=== PATIENT | female | born 2000 | race Two or more races ===

== ENCOUNTER 2023-04-27 14:29 | Outpatient (REF) | payer MEDICAID, SELFPAY ==
--- NOTE | ~2023-04-27 | US_ITS ---
EXAMINATION: US PELVIS COMPLETE CLINICAL INFORMATION: Dysmenorrhea COMPARISON: Dysmenorrhea TECHNIQUE: Transabdominal and transvaginal imaging was performed. FINDINGS: The uterus is of normal size and echogenicity measuring 2.7 x 2.1 x 1.7 cm. A regular homogeneous endometrium is identified measuring 1.1 cm. Both ovaries are of normal size and echogenicity. The right measures 2.7 x 2.1 x 1.7 cm for a volume of 5.1 mL. The left measures 3.5 x 1.6 x 2.1 cm for a volume of 6.0 mL. There is trace physiologic volume pelvic free fluid. Prominent gonadal vessels which could be seen in the setting of pelvic venous congestion syndrome if clinical history is appropriate. US/US pelvic and transvaginal IMPRESSION: Prominent gonadal vessels which could be seen in the setting of pelvic venous congestion syndrome if clinical history is appropriate. Otherwise unremarkable pelvic ultrasound.
== END 2023-04-27 14:30 | disposition home or self-care (01) ==
LOC: HO.HMGCX 14:29
PROVIDERS: Visit Provider Advanced Practice Midwife
DX: N94.6 Dysmenorrhea, unspecified (principal)
CPT/HCPCS: 76830; 76856

== ENCOUNTER 2023-06-01 12:12 | Outpatient (REF) | payer MEDICAID, SELFPAY ==
[2023-06-01 14:28] LABS: Appearance Urine Turbid; Color Urine Yellow; Glucose Urine UA Negative (Negative); Leukocyte Esterase Urine Large (3+) (Negative); Nitrite Urine Negative (Negative); PH 5.5 (5.0-9.0); Specific Gravity - Urine 1.025 (1.005-1.025); UMIC TRIGGER UA YES; Urine Blood Negative (Negative); Urine Ketones Negative (Negative); Urine Protein Trace mg/dL (Neg-Trace)
[2023-06-01 14:39] LABS: Bacteria Urine 3+ (None Seen); RBC Urine >20 /HPF (0-2); Squamous Epithelial Cell Urine >20 /HPF (0-2); WBC Urine >50 /HPF (0-5)
[2023-06-01 15:03] LABS: HCG Quantitative < 2 mIU/mL
== END 2023-06-01 12:13 | disposition home or self-care (01) ==
LOC: HO.CHCLDS 12:12
PROVIDERS: Visit Provider Student in an Organized Health Care Education/Training Program
DX: Z72.51 High risk heterosexual behavior (principal)
CPT/HCPCS: 36415; 81001; 84702

== ENCOUNTER 2023-07-12 12:32 | Outpatient (REF) | payer MEDICAID, SELFPAY ==
[2023-07-12 14:27] LABS: Estimated Average Glucose 103 mg/dL; Hemoglobin A1c % 5.2 % (<6.0)
[2023-07-12 16:25] LABS: CT PCR DETECTED (Not Detect.); NG PCR NOT DETECTED (Not Detect.)
[2023-07-13 03:53] LABS: ~HepC Num1 0.09 S/CO (0.00-0.79); ~Hepatitis C Antibody Nonreactive (Nonreactive)
[2023-07-13 03:55] LABS: HIV AB/AG Nonreactive (Nonreactive); HIV Num 1 0.05 S/CO (0.00-0.99)
[2023-07-13 04:09] LABS: Syphilis Screen Nonreactive (Nonreactive)
[2023-07-13 10:46] LABS: BV Int Neg Control Negative (Negative); BV Int Pos Control Positive (Positive)
[2023-07-16 01:29] LABS: C. Trachomatis RNA TMA, Throat NOT DETECTED; N. gonorrhoeae RNA TMA, Throat NOT DETECTED
== END 2023-07-12 12:33 | disposition home or self-care (01) ==
LOC: HO.CHCLDS 12:32
PROVIDERS: Visit Provider Advanced Practice Midwife
DX: Z11.3 Encounter for screening for infections with a predominantly sexual mode of transmission (principal); B37.31 Acute candidiasis of vulva and vagina
CPT/HCPCS: 0353U; 36415; 83036; 86780; 86803; 87389; 87480; 87491; 87510; 87591; 87660

== ENCOUNTER 2024-08-11 15:37 | Outpatient (REF) | payer MEDICAID, SELFPAY ==
[2024-08-12 06:12] LABS: CT PCR NOT DETECTED (Not Detect.); NG PCR NOT DETECTED (Not Detect.)
[2024-08-12 09:39] LABS: Bacterial Vaginosis PCR POSITIVE (Negative); Candida Group PCR NOT DETECTED (Not Detect); Candida glab krusei PCR NOT DETECTED (Not Detect); Trichomonas vaginalis PCR NOT DETECTED (Not Detect)
== END 2024-08-11 15:38 | disposition home or self-care (01) ==
LOC: HO.HHCLNP 15:37
PROVIDERS: Visit Provider General Practice
DX: N89.8 Other specified noninflammatory disorders of vagina (principal)
CPT/HCPCS: 0352U; 87491; 87591

== ENCOUNTER 2024-10-03 17:44 | Outpatient (REF) | payer MEDICAID, SELFPAY ==
[2024-10-04 03:53] LABS: CT PCR NOT DETECTED (Not Detect.); NG PCR NOT DETECTED (Not Detect.)
[2024-10-04 12:04] LABS: Bacterial Vaginosis PCR NEGATIVE (Negative); Candida Group PCR NOT DETECTED (Not Detect); Candida glab krusei PCR NOT DETECTED (Not Detect); Trichomonas vaginalis PCR NOT DETECTED (Not Detect)
== END 2024-10-03 17:45 | disposition home or self-care (01) ==
LOC: HO.HHCLNP 17:44
PROVIDERS: Visit Provider Internal Medicine
DX: R10.2 Pelvic and perineal pain (principal)
CPT/HCPCS: 0352U; 87086; 87491; 87591

== ENCOUNTER 2025-02-26 18:56 | Outpatient (REF) | payer MEDICAID, SELFPAY ==
--- OUTSIDE RECORDS SUMMARY | 2025-02-26 19:29 | XMS_ITS | Encounter Summary ---
Author Organization [employer] [facility] Address [address] [place] [address] 7 [place] [address] Care Team Providers Care Glass Furnace Tender Name Role Phone Yumi Lovelace MD Primary Care Provider [phone] Reason for Visit * Reason Onset Date Comments appt for extraction 02/18/2025 Encounter Details Date Type Department Care Team (Late st Contact Info) Description 02/18/2025 Telephone [facility] [address] [place], [place] [phone] Mazin Leone DDS [address] [place] [address] appt for extraction Social History Tobacco Use Types Packs/Day Years Used Date Smoking Tobacco: Never Passive Smoke Exposure: Never Smokeless Tobacco: Never Alcohol Use Standard Drinks/Week Comments Not Currently 0 (1 standard drink = 0.6 oz pur e alcohol) Comments No Sex and Gender Information Value Date Recorded Sex Assigned at Female 09/20/2022 10:37 AM EDT Legal Sex Female 10:37 AM EDT Gender Identity Female 09/20/2022 10:37 AM EDT Sexual Orientation Straight 09/20/2022 10 :37 AM EDT documented as of this encounter Miscellaneous Notes * Telephone Encounter - Wendy Ray - 02/18/2025 11:23 AM EDT Patient was just seen in [facility] for pain on tooth that was due to be extracted in October. Patient was unable to come to visit because they were sick. She has been prescribed antibiotics and pain medication due to infection and looking to have extraction appt rescheduled. Please reach out topatient for scheduling DR documented in this encounter Plan of Treatment Not on file documented as of this encounter Visit Diagnoses Not on filedocumented in this encounter Care Teams Glass Furnace Tender Relationship Specialty Start Date End Date Yumi Lovelace MD [address] [place] [address] PCP - General Family Medicine 09/16/20 documented as of this encounter
--- OUTSIDE RECORDS SUMMARY | 2025-02-26 19:29 | XMS_ITS | Encounter Summary ---
Author Organization [employer] Address [address] [place] [address] 7t [place] [address] Care Team Providers Care Ladle Pourer Name Role Phone Yumi Lovelace MD Primary Care Provider [phone] Reason for Visit * Reason Onset Date Comments Referral 10/31/2023 Encounter Details Date Type Department Care Team ([facility] st Contact Info) Description 10/31/2023 Telephone [facility] [address] [place] [address] Yumi Lovelace MD [address] [place], [place] [phone] Referral Social History Tobacco Use Types Packs/Day Years [...] encounter Miscellaneous Notes * Telephone Encounter - Charan Estrada - 10/31/2023 3:04 PM EST Tc from pt requesting a call from a nurse or provider Dr. Mcguire in regards to referral made on 10/18/2023 for Gastroenterology. Pt is requesting if referral could be prioritized because states needsto be seen sooner then February. Please contact pt @ [phone] documented in this encounter Plan of Treatment Not on file documented as of this encounter Visit Diagnoses Not on filedocumented in this encounter Care Teams Ladle Pourer Relationship Specialty Start Date End Date Yumi Lovelace MD [address] [place] [address] PCP - General Family Medicine 09/16/20 documented as of this encounter
--- OUTSIDE RECORDS SUMMARY | 2025-02-26 19:29 | XMS_ITS | Clinical Summary ---
Author Organization [employer] Address [address] [place] [address] 7t [place] [address] Care Team Providers Care Shipwright Name Role Phone Yumi Lovelace MD Primary Care Provider [phone] Allergies No known active allergies Medications valACYclovir (Valtrex) 1 g tablet Take 2 tablets by mouth every 12 (twelve) hours. 08/04/20 22 Active clotrimazole (Lotrimin) 1 % vaginal creamIndicatio ns:Vulvovagina l Candidiasis Insert one applicator per vagina at bedtime for 7 nights 45 g 1 09/11/20 24 Active Additional Information Patient not taking.Reported on 09/26/2024 amoxicillin (Amoxil) 500 MG capsule Take 1 capsule (500 mg) by mouth every 8 (eight) hours for 7 days. 21 capsule 02/27/20 25 025 Active ibuprofen 800 MG tablet Take 1 tablet (800 mg) by mouth every 8 (eight) hours if needed for mild pain for up to 10 days. 15 tablet 02/27/20 25 025 Active fluconazole (Diflucan) 150 MG tabletIndicati ons:Vulvovagin al Candidiasis Take 1 tablet (150 mg) by mouth 1 (one) time for 1 dose. 1 tablet 02/27/20 25 025 Active norelgestromin -ethinyl estradiol (Ortho-Evra) 150-35 MCG/24HR Apply 1 patch each week for 3 weeks, then remove for 1 week. 9 patch 3 02/27/20 25 Active norelgestromin -ethinyl estradiol (Ortho-Evra) 150-35 MCG/24HR APPLY 1 PATCH TO SKIN DIRECTED. REMOVE PATCH & APPLY NEW PATCH WEEKLY FOR 3 WEEKS THEN 1 WEEK OFF 9 patch 1 11/01/20 24 025 Discontinued(R eorder (will not trigger notification to Pharmacy)) Active Problems Problem Noted Date Diagnosed Date Vaginal candidiasis 09/11/2024 Assessment & Plan (02/26/2025 2:01 PM EDT): No clinical evidence of acute abdomen or pyelonephritis. Denies antibiotic use in the past 90 days. Allergies reviewed. -Discussed and offered pt PreP. -Wet prep with BRIE significant for hyphae and budding yeast. -Prescribed clotrimazole. -Candidiasis prevention discussed. -Potential adverse effects of the medication reviewed. -Discussed strategies to prevent future infections: Increase fluids. Urinate after sex. Avoid bladder irritants. -Report fever, chills, worsening symptoms or abdominal/flank pain. Assessment & Plan (09/11/2024 10:11 AM EDT): No evidence of acute disease process. Symptoms mild. No clinical evidence of acute abdomen or pyelonephritis. Denies antibiotic use in the past 90 days. Allergies reviewed. -Discussed and offered pt PreP. -Wet prep with BRIE significant for hyphae and budding yeast. -Will treat with clotramizole. -Candidiasis prevention discussed. -Potential adverse effects of the medication reviewed. -Discussed strategies to prevent future infections: Increase fluids. Urinate after sex. Avoid bladder irritants. -Report fever, chills, worsening symptoms or abdominal/flank pain. -Advised to seek medical attention if no improvement or worsening of symptoms. -ER precautions reviewed. Vaginal itching 09/11/2024 Gastroesophageal reflux disease 02/18/2023 Assessment & Plan (10/18/2023 3:39 PM EST): Patient still presents visit with complaints of acid reflux, therefore, will change Omeprazole for Pantoprazole, Famotidine, Sucralfate. In addition, patient will be referred to Gastroenterology. Will schedule follow up with PCP. Assessment & Plan (02/21/2023 10:28 AM EDT): Sent omeprazole, recommended f/up PCP Future Appointments Date Time Provider Department Center 03/21/2023 11:15 AM Yumi Lovelace MD [facility] Vaginosis 02/18/2023 Assessment & Plan (02/21/2023 10:28 AM EDT): Greyish discharge with fishy smell, will treat for BV and will send swab, f/up with results Acute pain of right knee 02/17/2023 Ulcer of pharynx 02/17/2023 Heart murmur 10/05/2012 Overview (02/17/2023): Innocent. ADHD (attention deficit hyperactivity disorder) 03/31/2007 Overview (02/17/2023): Doing well off Focalin. Encounters Date Type Department Care Team Description 02/26/2025 2:20 PM EDT Office Visit [facility] [address] [place] [address] Antonia Acosta MD Vaginal candidiasis (Primary Dx); Routine screening for STI (sexually transmitted infection) 02/26/2025 1:00 PM EDT Office Visit [facility] [address] [place] [address] Giuliana Bernal DDS Dental caries (Primary Dx) 02/18/2025 Telephone [facility] [address] [place] [address] Mazin Leone DDS appt for extraction 02/01/2025 Population Health Risk Score [facility] (C3) Department [address] [place] [phone] Provider, Population Health Generic from Last 3 Months Immunizations Name Administration Dates Next Due DTP 01/01/2002,2001,2001 DTaP 09/08/2005,07/11/2002 HPV, Quadrivalent 04/26/2014,12/28/2013,10/23/20 13 Hep A, ped/adol, 2 dose 02/19/2015,10/23/2013 Hep B, Adolescent or Pediatric 01/01/2002,2000,2001 Hib (PRP-T) 07/11/2002, 2,2001,06/05 IPV 09/08/2005, 2,2001,06/05 Influenza injectable quadriv alent preservative free 12/10/2020,10/17/2019,09/19/2018,09/23,10/20/2016,08/15/2014,10/23/2013 Influenza, IIV3, injectable 09/03/2010,1 ,09/30/2008,10/03,10/19/2006,09/15/2006 Influenza, live, intranasal 10/05/2012, 1 MMR 09/08/2005,08/30/2002,06/04/2002 Meningococcal MCV4P ACYW-135 07/21/2017,10/05/20 12 Pneumococcal Conjugate PCV 7 01/01/2002,09/27/20,2001 Tdap 11/08/2023,10/05/2012 Varicella 09/03/2010,06/04/2002 Social History Tobacco Use Types Packs/Day Years Used Date Smoking Tobacco: Never Passive Smoke Exposure: Never Smokeless Tobacco: Never Tobacco Cessation:Counseling Given: Not Answered Alcohol Use Standard Drinks/Week Comments Not Currently 0 (1 standard drink = 0.6 oz pur e alcohol) Comments No Sex and Gender Information Value Date Recorded Sex Assigned at Female 09/20/2022 10:37 AM EDT Legal Sex Female 10:37 AM EDT Gender Identity Female 09/20/2022 10:37 AM EDT Sexual Orientation Straight 09/20/2022 10 :37 AM EDT Last Filed Vital Signs Vital Sign Reading Time Taken Comments Blood Pressure 127/70 02/26/2025 1:57 PM EDT Pulse 79 02/26/2025 1:57 PM EDT Temperature 36.6 ??C (97.9 ??F) 02/26/2025 1:57 PM ED T Respiratory Rate 16 02/26/2025 1:57 PM EDT Oxygen Saturation 100% 02/26/2025 1:57 PM EDT Inhaled Oxygen Concentration - - Weight 49 kg (108 lb) 02/26/2025 1:57 PM EDT Height 152.4 cm (5') 09/11/2024 9:50 AM EDT Body Mass Index 21.09 09/11/2024 9:50 AM EDT Plan of Treatment Health Maintenance Due Date Last Done Comments Dental Prophylaxis 2001 Depression Screening 2001 SDOH Screening 2001 Alcohol/Substance Use Screening 2013 Family Planning (PISQ) 2016 COVID-19 Vaccine ( season) 2024 02/10/2022 Influenza Vaccine (#1) 2024 , 10/17/2019, 09/19/2018, Additional history exists Dental Oral Exam 03/27/2025 09/26/2024 Chlamydia and Gonorrhea Screening 10/03/2025 10/03/2024, 08/11/2024, 07/12/2023, Additional history exists Pap Smear 01/18/2026 01/18/2023, 01/18/2023 Tobacco Screening 02/26/2026 02/26/2025 Dental X-Ray: Bitewings 02/27/2026 02/26/2025, 09/26 Dental X-Ray: Full Mouth 09/27/2027 09/26/2024 DTaP/Tdap/Td Vaccines (8 - Td or Tdap) 11/08/2033 11/08/2023, 10/05/2012, 09/08/2005, Additional history exists Zoster Vaccines (1 of 2) 2051 RSV Patients and Patients Aged 60 years or older (1 - 1-dose 75+ series) 2076 Hepatitis B Vaccines Completed 01/01/2002, 2001, 2001 Pneumococcal Vaccine: Pediatrics (0 to 5 Years) and At-Risk Patients (6 to 49) Years) Aged Out 01/01/2002, 2001, 2001 No longer eligible based on patient's age to complete this topic HIB Vaccines Completed 07/11/2002, 12/22, 2001, Additional history exists IPV Vaccines Completed 09/08/2005, 02/2002, 2001, Additional history exists HPV Vaccines Completed 04/26/2014, 05/2014, 10/23/2013 Hepatitis A Vaccines Completed 02/19/2015, 10/23/20 Meningococcal Vaccine Completed 07/21/2017, 012 HIV Screening Completed 07/12/2023, 12/22, 09/28/2021, Additional history exists Hepatitis C Screening Completed 07/12/2023 , 01/07/2022, 09/28/2021, Additional history exists RSV under 20 months Aged Out No longe r eligible based on patient's age to complete this topic Rotavirus Vaccines Aged Out No longer eligible based on patient's age to complete this topic Procedures Procedure Name Priority Date/Time Associated Diagnosis Comments CASE PRESENTATION, DETAILED AND EXTENSIVE TREATMENT PLANNING Routine 02/26/2025 1:00 PM EDT Dental caries BITEWING - SINGLE RADIOGRAPHIC IMAGE Routine 02/26/2025 1:00 PM EDT Dental caries INTRAORAL - PERIAPICAL FIRST RADIOGRAPHIC IMAGE Routine 02/26/2025 1:00 PM EDT Dental caries PALLIATIVE (EMERGENCY) TREATMENT OF DENTAL PAIN - MINOR PROCEDURE Routine 02/26/2025 1:00 PM EDT Dental caries CHLAMYDIA/N. GONORRHOEAE RNA, TMA, UROGENITAL Routine 10/03/2024 4:20 PM EST Suprapubic pain INTRAORAL - COMPLETE SERIES OF RADIOGRAPHIC IMAGES Routine 09/26/2024 1:00 PM EST PERIODIC ORAL EVALUATION - ESTABLISHED PATIENT Routine 09/26/2024 1:00 PM EST Encounter for dental examination Dental caries Gingivitis Dental calculus Dental plaque HEPATITIS C ANTIBODY REFLEX Routine 07/12/2023 12:35 PM EDT HIV ANTIBODY/ANTIGEN ([place] [facility]) Routine 07/12/2023 12:35 PM EDT PAP SMEAR Routine 01/18/2023 12:00 AM EST from Last 3 Months or Most Recently Relevant to Health Maintenance Results * Chlamydia/N. Gonorrhoeae RNA, TMA, Urogenitial (10/03/2024 4:20 PM EST) CT PCR NOT DETECTED Not Detect. [facility] Comment:A not detected test result does not exclude the possibilityof infection because test results can be affected byimproper specimen collection, concurrent antibiotic therapy,or the number of organisms in the specimen which may bebelow the sensitivity of the test. As with many diagnostictests, results from the Xpert CT/NG assay should beinterpreted in conjunction with other laboratory andclinical data available to the clinician.Xpert CT/NG performance has not been evaluated in patientsless than 14 years of age. The assay should not be used forthe evaluationof suspected sexual abuse or for other medico-legalindications. Additional testing is recommended in anycircumstance when false positive or false negative resultscould lead to adverse medical, social or psychologicalconsequences. NG PCR NOT DETECTED Not Detect. [facility] Comment:A not detected test result does not exclude the possibilityof infection because test results can be affected byimproper specimen collection, concurrent antibiotic therapy,or the number of organisms in the specimen which may bebelow the sensitivity of the test. As with many diagnostictests, results from the Xpert CT/NG assay should beinterpreted in conjunction with other laboratory andclinical data available to the clinician.Xpert CT/NG performance has not been evaluated in patientsless than 14 years of age. The assay should not be used forthe evaluationof suspected sexual abuse or for other medico-legalindications. Additional testing is recommended in anycircumstance when false positive or false negative resultscould lead to adverse medical, social or psychologicalconsequences. Urine (Urine, Random) 10/03/2024 4:20 PM EST 10/03/2024 5:46 PM EST Narrative [facility] - 10/04/2024 3:53 AM EST Vaginal us Kelly Jasso MD LAB MICROBIOLOGY - GENER AL ORDERABLES Final Result [facility] [address] [place] [address] [phone] * Hepatitis C Antibody Reflex (07/12/2023 12:35 PM EDT) Hepatitis C Antibody Nonreactive Nonreactive [facility] Comment:Antibodies to HCV no t detected; does not exclude early acuteHCV infection. 07/12/2023 12:3 5 PM EDT 07/12/2023 2:07 PM EDT Francine Nelson [facility] LAB BLOOD ORDERABLES Elle l Result Performing Organization Address [facility]/ZIP Co de Phone Number [facility] [address] [place] [address] [phone] * HIV Ab/Ag ([facility]) (07/12/2023 12:35 PM EDT) Pathologist [facility] HIV AB/AG Nonreactive Nonreactive [facility] Comment:HIV-1 p24 Ag and/or HIV-1/HIV-2 Ab not detected.A test result that is nonreactive does not exclude thepossibility of exposure to or infection with HIV-1 and/orHIV-2. Nonreactive results in this assay for individualswith prior exposure to HIV-1 and/or HIV-2 may be due toantigen and antibody levels that are below the limit ofdetection of this assay.The [employer] HIV Ag/Ab Combo assay result andsupplemental assay results should be interpreted inconjunction with the patient's clinical presentation,history and other laboratory results. If the results areinconsistent with clinical evidence, additional testing issuggested to confirm the result. 07/12/2023 12:3 5 PM EDT 07/12/2023 2:07 PM EDT Francine Nelson [facility] LAB BLOOD ORDERABLES Elle l Result Performing Organization Address [facility]/ZIP Co de Phone Number [facility] [address] [place] [address] [phone] * Pap Smear (01/18/2023 12:00 AM EST) Swab Historical Provider LAB CYTOLOGY ORDERABLES F inal Result Performing Organization Address City/[facility]/ZIP Co de Phone Number [facility] [address] [place] [address] [phone] from Last 3 Months or Most Recently Relevant to Health Maintenance Insurance [place] [facility] MEDICAID STAND ADULT Care Teams Shipwright Relationship Specialty Start Date End Date Yumi Lovelace MD [address] [place] [phone] PCP - General Family Medicine 09/16/20
--- OUTSIDE RECORDS SUMMARY | 2025-02-26 19:29 | XMS_ITS | Encounter Summary ---
Author Organization [employer] [facility] Address [address] [place] [address] [address] [place] [address] Care Team Providers Care Cloth Classer Name Role Phone Yumi Lovelace MD Primary Care Provider Encounter Details Date Type Department Care Team (Late st Contact Info) Description 10/10/2024 Orders Only [facility] [address] [place] [address] Giuliana Bernal DDS [address] [place] [address] Social History Tobacco Use Types Packs/Day Years [...] AM EDT documented as of this encounter Plan of Treatment Not on file documented as of this encounter Visit Diagnoses Not on filedocumented in this encounter Care Teams Cloth Classer Relationship Specialty Start Date End Date Yumi Lovelace MD [address] [place] [address] PCP - General Family Medicine 09/16/20 documented as of this encounter
--- OUTSIDE RECORDS SUMMARY | 2025-02-26 19:29 | XMS_ITS | Encounter Summary ---
Author Organization [employer] [facility] Address [address] [place] [address] 7 [place] [address] Care Team Providers Care Lab Support Tech Name Role Phone Yumi Lovelace MD Primary Care Provider [phone] Reason for Visit * Reason Onset Date Comments lost medication 10/04/2024 Encounter Details Date Type Department Care Team ([facility] st Contact Info) Description 10/04/2024 Telephone [facility] [address] [place] [address] Giuliana Bernal DDS [address] [place] [address] lost medication Social History Tobacco Use Types Packs/Day Years [...] * Telephone Encounter - Wendy Ray - 10/04/2024 4:11 PM EST Message for Dr. Richards Patient called in to report that she lost her scripted antibiotics. I don't see antibiotics listed as medication so unsure which medication she is speaking of. But she was clear to say that it was hedental script. She would like it to be resent to the pharmacy DR documented in this encounter Plan of Treatment Not on file documented as of this encounter Visit Diagnoses Not on filedocumented in this encounter Care Teams Lab Support Tech Relationship Specialty Start Date End Date Yumi Lovelace MD [address] [place] [phone] PCP - General Family Medicine 09/16/20 documented as of this encounter
--- OUTSIDE RECORDS SUMMARY | 2025-02-26 19:29 | XMS_ITS | Encounter Summary ---
Author Organization [employer] Address [address] [place] [address] [address] [place] [address] Care Team Providers Care Cold Strip Roller Name Role Phone Yumi Lovelace MD Primary Care Provider [phone] Encounter Details Date Type Department Care Team ([facility] st Contact Info) Description 01/26/2023 Orders Only [facility] [address] [place] [address] Sarah De La Cruz RN [address] [place] [address] Social History Tobacco Use Types Packs/Day Years Used Date Smoking Tobacco: Never Passive Smoke Exposure: Never Smokeless Tobacco: Never Comments Unknown Sex and Gender Information Value Date Recorded Sex Assigned at Female 09/20/2022 10:37 AM EDT Legal Sex Female 10:37 AM EDT Gender Identity Female 09/20/2022 10:37 AM EDT Sexual Orientation Straight 09/20/2022 10 :37 AM EDT COVID-19 Exposure Response Date Recorded In the last 10 days, have yo u been in contact with someone who was confirmed or suspected to have Coronavirus/COVID-19? No / Unsure 01/18/2023 1:15 PM EST documented as of this encounter Plan of Treatment Not on file documented as of this encounter Procedures Procedure Name Priority Date/Time Associated Diagnosis Comments PAP SMEAR Routine 01/18/2023 12:00 AM EST documented in this encounter Results * Pap Smear (01/18/2023 12:00 AM EST) Swab us Historical Provider LAB CYTOLOGY ORDERABLES F inal Result [facility] [address] [place] [phone] documented in this encounter Visit Diagnoses Not on filedocumented in this encounter Care Teams Cold Strip Roller Relationship Specialty Start Date End Date Yumi Lovelace MD [address] [place] [phone] PCP - General Family Medicine 09/16/20 documented as of this encounter
--- OUTSIDE RECORDS SUMMARY | 2025-02-26 19:29 | XMS_ITS | Encounter Summary ---
Author Organization [employer] [facility] Address [address] [place] [address] 7 [place] [address] Care Team Providers Care Housekeeping Laundry Worker Name Role Phone Yumi Lovelace MD Primary Care Provider [phone] Reason for Visit * Reason Comments Dental Pain Encounter Details Date Type Department Care Team (Late st Contact Info) Description 02/26/2025 1:00 PM EDT Office Visit [facility] [address] [place] [address] Giuliana Bernal DDS [address] [place] [address] Dental caries (Primary Dx) Social History Tobacco Use Types Packs/Day Years [...] AM EDT documented as of this encounter Last Filed Vital Signs Vital Sign Reading Time Taken Comments Blood Pressure 110/70 02/26/2025 1:04 PM EDT Pulse - - Temperature - - Respiratory Rate - - Oxygen Saturation - - Inhaled Oxygen Concentration - - Weight - - Height - - Body Mass Index - - documented in this encounter Progress Notes * Giuliana Bernal DDS - 02/26/2025 1:00 PM EDT Dental procedures in this visit [id number] - PALLIATIVE (EMERGENCY) TREATMENT OF DENTAL PAIN - MINOR PROCEDURE (Completed) Service provider: Giuliana Bernal DDS Billing provider: Giuliana Bernal DDS [id number] - INTRAORAL - PERIAPICAL FIRST RADIOGRAPHIC IMAGE (Completed) Service provider: Giuliana Bernal DDS Billing provider: Giuliana Bernal DDS [id number] - BITEWING - SINGLE RADIOGRAPHIC IMAGE (Completed) Service provider: Giuliana Bernal DDS Billing provider: Giuliana Bernal DDS [id number] - CASE PRESENTATION, DETAILED AND EXTENSIVE TREATMENT PLANNING (Completed) Service provider: Giuliana Bernal DDS Billing provider: Giuliana Bernal DDS Patient ID: Annette Davis is a 24 y.o. female. Time Out: Timeout Date: 02/26/25, Timeout Time: 1305 (Time out for dental emergency) Location: [facility] Tooth: #2 Procedure: Emergency Verified the above with patient, personnel security assistant, and provider. Confirmed via patient's chart, intraorally and by radiographs. Baseball Player: not applicable Chief Complaint Patient presents with Dental Pain Medical Hx: Vitals: Blood pressure 110/70. History reviewed. No pertinent past medical history. Medications: Outpatient Encounter Medications as of 02/26/2025 Medication Sig Dispense Refill amoxicillin (Amoxil) 500 MG capsule Take 1 capsule (500 mg) by mouth every 8 (eight) hours for 7 days. 21 capsule 0 clotrimazole (Lotrimin) 1 % vaginal cream Insert one applicator per vagina at bedtime for 7 nights (Patient not taking: Reported on 09/26/2024) 45 g 1 ibuprofen 800 MG tablet Take 1 tablet (800 mg) by mouth every 8 (eight) hours if needed for mild pain for up to 10 days. 15 tablet 0 valACYclovir (Valtrex) 1 g tablet Take 2 tablets by mouth every 12 (twelve) hours. [DISCONTINUED] norelgestromin-ethinyl estradiol (Ortho-Evra) 150-35 MCG/24HR APPLY 1 PATCH TO SKIN DIRECTED. REMOVE PATCH & APPLY NEW PATCH WEEKLY FOR 3 WEEKS THEN 1 WEEK OFF 9 patch 1 No facility-administered encounter medications on file as of 02/26/2025. Subjective: Pain: moderate, severe Duration: 2 weeks. Pt started antibiotics prescribe at [facility]. However, she was not able to schedule appt for extraction because they do not take her insurance. Pt still symptomatic. Objective: Tooth: #2 Radiographs Taken: BW(s) and PA(s) Radiographic Findings: large DOBL decay on #2 extending into pulp and under gum line - non restorable Clinical Findings: Large DOBL decay observed, food debris, erythematous surrounding gingiva- plaqueinduced gingivitis.- poor OH Swelling: Tenderness Endo Testing: Cold: Hypersensitive, lingering Percussion: Pain Palpation: Pain Diagnosis: Rampant Caries; Acute Irreversible Pulpitis Assessment/Plan: Referred for ext Prescriptions: Amoxicillin 500 mg/tid/7 days 21 caps Ibuprofen 800 mg/tid/prn 15 tabs Pt tolerated procedure well, all questions answered. Dismissed in good condition. NV: Ext Periodic exam Sewer And Drain Technician: Val Jones Dentist: Giuliana Bernal DDS documented in this encounter Plan of Treatment Not on file documented as of this encounter Procedures Procedure Name Priority Date/Time Associated Diagnosis Comments PALLIATIVE (EMERGENCY) TREATMENT OF DENTAL PAIN - MINOR PROCEDURE Routine 02/26/2025 1:00 PM EDT Dental caries INTRAORAL - PERIAPICAL FIRST RADIOGRAPHIC IMAGE Routine 02/26/2025 1:00 PM EDT Dental caries CASE PRESENTATION, DETAILED AND EXTENSIVE TREATMENT PLANNING Routine 02/26/2025 1:00 PM EDT Dental caries BITEWING - SINGLE RADIOGRAPHIC IMAGE Routine 02/26/2025 1:00 PM EDT Dental caries documented in this encounter Visit Diagnoses Diagnosis Dental caries- Primary Unspecified dental caries documented in this encounter Care Teams Housekeeping Laundry Worker Relationship Specialty Start Date End Date Yumi Lovelace MD [address] [place] [phone] PCP - General Family Medicine 09/16/20 documented as of this encounter
--- OUTSIDE RECORDS SUMMARY | 2025-02-26 19:29 | XMS_ITS | Encounter Summary ---
Author Organization [employer] [facility] Address [address] [place] [address] [address] [place] [address] Care Team Providers Care Loft Patternmaker Name Role Phone Yumi Lovelace MD Primary Care Provider [phone] Reason for Visit * Reason Comments Vaginitis/Bacterial Vaginosis Encounter Details Date Type Department Care Team ([facility] st Contact Info) Description 02/26/2025 2:20 PM EDT Office Visit [facility] [address] [place] [address] [phone] Antonia Acosta MD [address] [place] [address] [phone] Vaginal candidiasis (Primary Dx); Routine screening for STI (sexually transmitted infection) Social History Tobacco Use Types Packs/Day Years [...] (108 lb) 02/26/2025 1:57 PM EDT Height - - Body Mass Index 21.09 09/11/2024 9:50 AM EDT documented in this encounter Progress Notes * Amira Scott - 02/26/2025 2:20 PM EDT Subjective Patient ID: Annette Davis is a 24 y.o. female who presents to walk in clinic for Vaginitis/Bacterial Vaginosis. Hx of UTI 05/13/23 & 06/01/23 Hx of BV 07/12/23 & 08/11/24 Hx of chlamydia 07/12/23, negative chlamydia 08/11/24 Hx of yeast 09/11/24 Hx of UTI 10/03/24, BV negative Pt reports this time she has noticed the irritation and itching after intercourse with her partner,unsure what triggers her recurrent yeast/BV infections. Denies any vaginal bleeding, dysuria, or abdominal pain. Denies any chance of . Review of Systems Constitutional: Negative for fever and unexpected weight change. Respiratory: Negative for shortness of breath. Cardiovascular: Negative for chest pain. Gastrointestinal: Negative for abdominal pain. Genitourinary: Negative for difficulty urinating and vaginal bleeding. Vaginal itching Musculoskeletal: Negative for back pain. Objective Visit Vitals BP 127/70 (BP Location: Right arm, Patient Position: Sitting, BP Cuff Size: Adult) Pulse 79 Temp 97.9 ??F (36.6 ??C) (Temporal) Resp 16 Body mass index is 21.09 kg/m??. Physical Exam Constitutional: Appearance: Normal appearance. Cardiovascular: Rate and Rhythm: Normal rate and regular rhythm. Heart sounds: Normal heart sounds. Pulmonary: Effort: Pulmonary effort is normal. Breath sounds: Normal breath sounds. Musculoskeletal: Cervical back: Normal range of motion and neck supple. Neurological: General: No focal deficit present. Mental Status: She is alert. Psychiatric: Behavior: Behavior normal. Problem List Items Addressed This Visit Vaginal candidiasis - Primary No clinical evidence of acute abdomen or pyelonephritis. Denies antibiotic use in the past 90 days.Allergies reviewed. -Discussed and offered pt PreP. -Wet prep with BRIE significant for hyphae and budding yeast. -Prescribed clotrimazole. -Candidiasis prevention discussed. -Potential adverse effects of the medication reviewed. -Discussed strategies to prevent future infections: Increase fluids. Urinate after sex. Avoid bladder irritants. -Report fever, chills, worsening symptoms or abdominal/flank pain. Other Visit Diagnoses Routine screening for STI (sexually transmitted infection) Relevant Orders Chlamydia/N. Gonorrhoeae RNA, TMA, Vagina -No evidence of acute disease process. Suspect yeast infection. Symptoms mild. -Will treat with antifungal. Agrees to STI testing. -ER precautions discussed. -Seek medical attention for worsening symptoms. I, Amira Scott, am serving as a scribe to document services personally performed by Dr. Wiseman, based on the patient's response to questions by provider and providers statements to me. documented in this encounter Miscellaneous Notes * Assessment & Plan Note - Amira Scott - 02/26/2025 2:01 PM EDTAssociated Problem(s): Vaginal candidiasis No clinical evidence of acute abdomen or pyelonephritis. Denies antibiotic use in the past 90 days.Allergies reviewed. -Discussed and offered pt PreP. -Wet prep with BRIE significant for hyphae and budding yeast. -Prescribed clotrimazole. -Candidiasis prevention discussed. -Potential adverse effects of the medication reviewed. -Discussed strategies to prevent future infections: Increase fluids. Urinate after sex. Avoid bladder irritants. -Report fever, chills, worsening symptoms or abdominal/flank pain. documented in this encounter Plan of Treatment Scheduled Orders Name Type Priority Associated Diagnoses Orde r Schedule Chlamydia/N. Gonorrhoeae RNA, TMA, Vagina Microbiology Routine Routine screening for STI (sexually transmitted infection) Ordered: 02/26/2025 documented as of this encounter Visit Diagnoses Diagnosis Vaginal candidiasis- Primary Candidiasis of vulva and vagina Routine screening for STI (sexually transmitted infection) Screening examination for venereal disease documented in this encounter Care Teams Loft Patternmaker Relationship Specialty Start Date End Date Yumi Lovelace MD [address] [place] [id number] PCP - General Family Medicine 09/16/20 documented as of this encounter
[2025-02-27 07:21] LABS: CT PCR NOT DETECTED (Not Detect.); NG PCR NOT DETECTED (Not Detect.)
== END 2025-02-26 18:57 | disposition home or self-care (01) ==
LOC: HO.HHCLNP 18:56
PROVIDERS: Visit Provider Family Medicine
DX: Z11.3 Encounter for screening for infections with a predominantly sexual mode of transmission (principal)
CPT/HCPCS: 87491; 87591